=== PATIENT | female | born 1990 | race Caucasian/White ===

== ENCOUNTER 2018-01-09 07:13 | Emergency (ER) | payer SELFPAY ==
[~2018-01-09] VITALS: Ht 170.2 cm; Wt 152.7 kg
[2018-01-09 07:16] VITALS: BP 168/118
[2018-01-09] MEDS ORDERED: VENTOLIN HFA IN (07:32)
[2018-01-09] MEDS ORDERED: PREDNISONE50 MG PO (07:32)
[2018-01-09] MEDS ORDERED: LISINOPRIL20 MG PO (07:32)
[2018-01-09] MEDS ORDERED: ZITHROMAX250 MG PO (07:32)
== END 2018-01-09 08:23 | disposition home or self-care (01) | DRG 203 ==
LOC: ED 07:13
DX: J20.9 Acute bronchitis, unspecified (principal); F17.210 Nicotine dependence, cigarettes, uncomplicated; R05 Cough; R09.81 Nasal congestion; R06.2 Wheezing; R09.89 Other specified symptoms and signs involving the circulatory and respiratory systems; I10 Essential (primary) hypertension; Z91.14 Patient's other noncompliance with medication regimen

== ENCOUNTER 2018-05-11 09:38 | Emergency (ER) | payer OTHER ==
[~2018-05-11] VITALS: Ht 170.2 cm; Wt 145.0 kg
[~2018-05-11 09:38] MED LIST: LISINOPRIL20 MG PO; PREDNISONE50 MG PO; VENTOLIN HFA IN; ZITHROMAX250 MG PO
[2018-05-11 12:01] VITALS: BP 117/70
== END 2018-05-11 12:15 | disposition home or self-care (01) ==
LOC: ED 09:38
DX: O26.891 Other specified pregnancy related conditions, first trimester (principal); G43.909 Migraine, unspecified, not intractable, without status migrainosus; F17.210 Nicotine dependence, cigarettes, uncomplicated; Z3A.01 Less than 8 weeks gestation of pregnancy